=== PATIENT | male | born 1950 | race American Indian/Alaskan Native ===

== ENCOUNTER 2021-03-25 08:27 | Day surgery (SDC) | payer MEDICARE, OTHER ==
[2021-03-25] MEDS ORDERED: SODIUM CHLORIDE 0.9% 1000 ML 1,000 ML ONE (09:00)
--- NOTE | 2021-03-25 09:04 | Anesthesia Consultation ---
Anesthesia Consult and Med Hx Date of service: 03/25/21 - Airway Anesthetic Teeth Evaluation: Edentulous ROM Head & Neck: Adequate Mental/Hyoid Distance: Adequate Mallampati Class: Class III Intubation Access Assessment: Possibly Difficult - Pulmonary Exam CTA: Yes - Cardiac Exam Cardiac Exam: RRR - Pre-Operative Health Status ASA Pre-Surgery Classification: ASA3 Proposed Anesthetic Plan: MAC - Pulmonary Hx Sleep Apnea: Yes (no cpap) - Cardiovascular System Hx Hypertension: Yes - Endocrine Hx Non-Insulin Dependent Diabetes: Yes - Other Systems Hx Obesity: Yes
--- NOTE | 2021-03-25 09:04 | Anesthesia Day of Surgery ---
Anesthesia Day of Surgery - Day of Surgery Patient Examined: Yes Patient H&P Reviewed: Yes Patient is NPO: Yes
[2021-03-25] MEDS ORDERED: propofoL 200 MG/20 ML VIAL IV ONE (09:28)
[2021-03-25] MEDS ORDERED: LIDOCAINE MPF (2%) 20 MG/1 ML VIAL 5 ML ONE (09:37)
[2021-03-25] MEDS ORDERED: PHENYLEPHRINE/NS 1,000 MCG/10 ML SYRINGE (OR USE) IV ONE (10:08)
--- NOTE | 2021-03-25 10:09 | Short Stay Summary ---
Short Stay Documentation Date of service: 03/25/21 Narrative H&P: The patient presents for diagnostic colonoscopy due to a positive Cologuard test. - History Past Medical History: diabetes, hypertension, other (Morbid obesity) Past Surgical History: No surgical history Social history: no significant social history, , lives with family, no smoking, no alcohol abuse, no prescription drug abuse - Allergies and Medications Current Medications: Allergies No Known Allergies Allergy (Unverified 03/18/21 12:41) - Physical exam General appearance: no acute distress, well-nourished, obese Integumentary: no rash, no growths, no abnormal pigmentation HEENT: Atraumatic, PERRLA, EOMI, Mucous membr. moist/pink Lungs: Clear to auscultation, Normal air movement Breasts: deferred Heart: Regular rate, Normal S1, Normal S2, No murmurs Gastrointestinal: normoactive bowel sounds, no tenderness, no distended, no masses, no guarding, no organomegaly, obese Male Genitourinary: deferred Rectal Exam: normal rectal tone, no mass Extremities: no ischemia, pulses intact, pulses symmetrical, No edema, normal temperature, normal color, Full ROM Neurological: Normal gait, Normal speech, Strength at 5/5 X4 ext, Normal tone, Sensation intact, Cranial nerves 3-12 NL - Brief post op/procedure progress note Date of procedure: 03/25/21 Findings: see dictation Estimated blood loss: minimal Pathology: list (1. biopsies of 3-4 cm size lateral spreading cecal polyp 2. biopsies of friable, malignant appearing mid ascending colon mass, 3. pedunculated proximal transvere polyp specimen (removed completely)) Specimen disposition: to lab Condition: stable - Disposition Condition at discharge: Good Disposition: 01 HOME / SELF CARE / HOMELESS - Discharge Diagnoses (1) Positive colorectal cancer screening using Cologuard test Status: Acute Short Stay Discharge Plan Activity: other (no driving for 24 hours.) Weight Bearing Status: Full Weight Bearing Diet: regular Follow up with: CHERRY DEWEY MD [Primary Care Provider] - 7 Days
--- NOTE | 2021-03-25 10:16 | Operative Report ---
Operative Report Operative Report: Date of procedure: 03/25/2021 Preprocedure diagnosis: Diagnostic colonoscopy for positive Cologuard test Post procedure diagnosis: 1. Large lateral spreading polyp, 3 to 4 cm in size in the cecum 2. Malignant appearing semicircumferential ascending colon mass 3. Pedunculated proximal transverse colon polyp-removed Procedure: Colonoscopy to the cecum with biopsies of the cecal polyp, biopsies of the malignant ascending colon mass and hot snare polypectomy of the proximal transverse colon polyp (complete removal). Endoscopist: Dr. Campos Anesthesia: Monitored anesthesia care per anesthesia department Estimated blood loss: 0 Medications: Monitored anesthesia care. See separate report by anesthesia for details. After careful discussion of the nature and purpose of the procedure as well as details of the technique risks benefits and alternatives the patient gave consent. Please see recent history and physical from the office. The patient was placed in the left lateral decubitus position and medicated per anesthesia. A rectal exam was performed sphincter tone was normal there were no masses palpable. The Yappn 570 scope was passed transanally and advanced under continuous direct vision without difficulty to the cecum. The colon was well prepared. The cecum revealed a 3 to 4 cm size lateral spreading polyp with a villous appearing surface. The ascending colon revealed a semicircumferential large, ulcerated, malignant appearing mass in the mid ascending colon. Biopsies were taken. There was an 8 mm pedunculated polyp on a stalk in the proximal transverse colon which was removed with hot snare cautery completely. The polyp was retrieved by suction through the scope. The descending colon and sigmoid colon were normal. The rectum was normal on forward and retroflexed views. The procedure was well-tolerated overall and the patient was observed in recovery. Conclusions: 1. 4 cm lateral spreading polyp with a villous appearance in the cecum. 2. Large semicircumferential, ulcerated, malignant appearing mass in the mid ascending colon and 3. Benign-appearing proximal transverse polyp-removed. Plan: Await pathology. The patient will need surgery. Signed electronically: Ramirez Campos M.D.
--- NOTE | 2021-03-25 13:09 | Post Anesthesia Evaluation ---
- Post Anesthesia Evaluation Patient Participated: Yes Airway Patent: Yes Stable Respiratory Function: Yes Nausea/Vomiting: No Temp > 96.8F: Yes Pain Manageable: Yes Adequeate Hydration: Yes Anesthesia Complications: No
[2021-03-25 13:44] VITALS: BP 120/71
== END 2021-03-25 11:00 | disposition home or self-care (01) ==
LOC: GIO 08:27
PROVIDERS: ATTEND Internal Medicine Gastroenterology
DX: R19.5 Other fecal abnormalities (principal); K63.5 Polyp of colon; K63.89 Other specified diseases of intestine; I10 Essential (primary) hypertension; G47.30 Sleep apnea, unspecified; E66.9 Obesity, unspecified; E11.9 Type 2 diabetes mellitus without complications; Z79.899 Other long term (current) drug therapy; Z68.41 Body mass index [BMI] 40.0-44.9, adult; Z20.822 Contact with and (suspected) exposure to COVID-19
CPT/HCPCS: 45380; 45385; 82962; 88305; J2370; J2704; J3490; J7030; U0003; J7120; Q0162